=== PATIENT | female | born 2005 | race Caucasian/White ===

== ENCOUNTER 2025-03-01 12:53 | Emergency (ER) | payer BC, SELFPAY ==
[2025-03-01 12:58] VITALS: BP 110/69; PULSE 94; RESP 16; TEMP 36.7; O2SAT 99; BMI 27.3
[2025-03-01 15:20] VITALS: BP 132/87; PULSE 74; RESP 18; O2SAT 98
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
== END 2025-03-01 16:50 | disposition home or self-care (01) ==
PROVIDERS: Emergency Provider Family Medicine
DX: S93.601A Unspecified sprain of right foot, initial encounter (principal); V43.52XA Car driver injured in collision with other type car in traffic accident, initial encounter
CPT/HCPCS: 73630; 99283; 99284